=== PATIENT | female | born 1960 | race Caucasian/White ===

== ENCOUNTER 2016-07-13 21:18 | Emergency (ER) | payer SELFPAY ==
[2016-07-13 21:19] VITALS: BMI 30.8
--- NOTE | 2016-07-13 22:15 | C.PDOC ---
History Of Present Illness 56 y/o female presents to the ED with complains of epigastric and LUQ abdominal pain which started yesterday, with associated nausea and vomiting. Denies any diarrhea, chest pain pain or any other complaints. Time Seen by Provider: 07/13/16 22:13 Chief Complaint (Nursing): Abdominal Pain History Per: Patient History/Exam Limitations: no limitations Onset/Duration Of Symptoms: Days Current Symptoms Are (Timing): Still Present Severity: Moderate Pain Scale Rating Of: 4 Location Of Pain/Discomfort: Epigastric, LUQ Radiation Of Pain To:: None Quality Of Discomfort: Cramping, Burning, "Pain" Associated Symptoms: Nausea. denies: Diarrhea, Loss Of Appetite, Urinary Symptoms Exacerbating Factors: None Alleviating Factors: None Last Bowel Movement: Today Recent travel outside of the [place]: No Additional History Per: Patient Abnormal Vaginal Bleeding: No Past Medical History Reviewed: Historical Data, Nursing Documentation, Vital Signs Vital Signs: Last Vital Signs Temp 97.7 F 07/13/16 21:22 Pulse 89 07/13/16 21:22 Resp 20 07/13/16 21:22 BP 150/88 07/13/16 21:22 Pulse Ox 100 07/13/16 22:21 - Medical History PMH: Anxiety, Depression, Gastritis, HTN, Migraine, Pancreatitis - [facility] Procedures INTRODUCTION OF SERUM/TOX/VACCINE INTO MUSCLE, PERC APPROACH (12/19/14) Family History: States: Unknown Family Hx - Social History Hx Tobacco Use: No Hx Alcohol Use: No Hx Substance Use: No - Immunization History Hx Tetanus Toxoid Vaccination: No Hx Influenza Vaccination: No Hx Pneumococcal Vaccination: No Review Of Systems Except As Marked, All Systems Reviewed And Found Negative. Constitutional: Negative for: Fever Cardiovascular: Negative for: Chest Pain Gastrointestinal: Positive for: Nausea, Vomiting, Abdominal Pain. Negative for : Diarrhea Physical Exam - Physical Exam Appears: Non-toxic, In Acute Distress (moderate distress due to pain) Skin: Warm, Dry, No Rash Head: Atraumatic, Normacephalic Oral Mucosa: Moist Neck: Normal, Normal ROM, Supple Chest: Symmetrical Cardiovascular: Rhythm Regular, No Murmur Respiratory: Normal Breath Sounds, No Rales, No Rhonchi, No Wheezing Gastrointestinal/Abdominal: Soft, Tenderness (epigastric and LUQ), No Guarding, No Rebound Extremity: Bilateral: Atraumatic Neurological/Psych: Oriented x3, Normal Speech ED Course And Treatment - Laboratory Results Result Diagrams: 07/13/16 22:48 07/13/16 22:48 O2 Sat by Pulse Oximetry: 100 (room air) Pulse Ox Interpretation: Normal Disposition Counseled Patient/Family Regarding: Diagnosis - Disposition Referrals: [facility] [Outside] Disposition: HOME/ ROUTINE Disposition Time: 00:37 Condition: STABLE Prescriptions: Dicyclomine [Dicyclomine HCl] 10 mg PO QID #14 cap Famotidine [Pepcid] 20 mg PO BID #14 tab Sucralfate [Carafate] 1 gm PO BID #20 tab Instructions: Abdominal Pain (ED), Gastritis (GEN), Diet for Ulcers and Gastritis (ED) - POA Present On Arrival: None - Clinical Impression Clinical Impression: Gastritis and duodenitis, Abdominal pain - Scribe Statement The provider has reviewed the documentation as recorded by the Marco Harkins Provider Attestation: All medical record entries made by the Marco were at my direction and personally dictated by me. I have reviewed the chart and agree that the record accurately reflects my personal performance of the history, physical exam, medical decision making, and the department course for this patient. I have also personally directed, reviewed, and agree with the discharge instructions and disposition.
[2016-07-13] MEDS ORDERED: Sodium Chloride 0.9% 1,000 ML IV ONE (22:16)
[2016-07-13 22:55] LABS: URINE BACTERIA RARE (<OCC); URINE BILIRUBIN NEGATIVE (NEGATIVE); URINE BLOOD NEGATIVE (NEGATIVE); URINE COLOR Colorless (YELLOW); URINE GLUCOSE (UA) NORMAL (Normal); URINE KETONE NEGATIVE (NEGATIVE); URINE PROTEIN NEGATIVE (NEGATIVE); URINE UROBILINOGEN NORMAL mg/dL (0.2-1.0); WBC URINE 3 /hpf (0-5)
[2016-07-13 22:56] LABS: BASO % 0.5 % (0.0-2.0); EOS # 0.1 K/uL (0.0-0.7); EOS % 0.8 % (0.0-4.0); HEMATOCRIT 42.8 % (34.0-47.0); LYMPH # 1.4 K/uL (1.0-4.3); LYMPH % 17.7 % (20.0-40.0); MEAN CELL VOLUME 90.8 fL (81.0-99.0); MEAN CORPUSCULAR HEMOGLOBIN 30.3 pg (27.0-31.0); MEAN CORPUSCULAR HGB CONC 33.4 g/dL (33.0-37.0); MEAN PLATELET VOLUME 10.2 fL (7.2-11.7); MONO # 0.4 K/uL (0.0-0.8); MONO % 5.3 % (0.0-10.0); RED CELL DISTRIBUTION WIDTH 13.1 % (11.5-14.5); WHITE BLOOD COUNT 7.7 K/uL (4.8-10.8)
[2016-07-13 22:57] LABS: URINE LEUKOCYTE ESTERASE NEGATIVE Leu/uL (Negative)
[2016-07-13 23:05] LABS: CHLORIDE 103 mmol/L (98-107); SODIUM 139 mmol/L (132-148)
[2016-07-13 23:06] LABS: POTASSIUM 3.8 mmol/L (3.6-5.2)
[2016-07-13 23:08] LABS: ALB/GLOB RATIO 1.6 (1.0-2.1); ALKALINE PHOSPHATASE 113 U/L (38-126); ALT/SGPT 27 U/L (9-52); AST/SGOT 29 U/L (14-36); BILIRUBIN,TOTAL 0.4 mg/dL (0.2-1.3); BLOOD UREA NITROGEN 14 mg/dL (7-17); CALCIUM 8.7 mg/dl (8.6-10.4); CARBON DIOXIDE 25 mmol/L (22-30); GFR AFRICAN-AMERICAN > 60; GLUCOSE,RANDOM 119 mg/dL (65-105)
[2016-07-14 00:50] VITALS: BP 151/71; PULSE 79; RESP 18; TEMP 98.3; O2SAT 98
--- NOTE | 2016-07-14 11:47 | CARD ---
APPROVED REPORT EKG Measurement Heart [id number] <Conclusion> Normal sinus rhythm Possible Inferior infarct, age undetermined Abnormal ECG
== END 2016-07-14 00:49 | disposition home or self-care (01) ==
LOC: C.ER 21:18
DX: R10.9 Unspecified abdominal pain (principal); K29.70 Gastritis, unspecified, without bleeding; K29.80 Duodenitis without bleeding
CPT/HCPCS: 80053; 81001; 83690; 85025; 93005; 96361; 96372; 96374; 96375; 99283; J0500; J2405; J7040